=== PATIENT | female | born 2000 | race Hispanic/Latino ===

== ENCOUNTER 2021-02-09 14:15 | Outpatient (CLI) | payer BC ==
[2021-02-10 07:43] LABS: SARS-CoV-2 PCR by NAA Not Detected (NotDetected)
== END 2021-02-09 14:16 | disposition home or self-care (01) ==
LOC: CSHLAB 14:15
PROVIDERS: ATTEND Student in an Organized Health Care Education/Training Program
DX: Z20.822 Contact with and (suspected) exposure to COVID-19 (principal)
CPT/HCPCS: U0003; U0005

== ENCOUNTER 2021-02-12 00:20 | Inpatient (IN) | payer BC ==
[2021-02-12 00:53] VITALS: BMI 32.8
[2021-02-12] MEDS ORDERED: Ibuprofen 800 MG TAB PO PRN (01:20)
[2021-02-12] MEDS ORDERED: Ondansetron PF 4 MG/2 ML Vial IVP PRN ×3 (01:20→10:16)
[2021-02-12] MEDS ORDERED: HYDROcodone/Acetaminophen 5/325 mg Tablet PO PRN ×3 (01:20→10:16)
[2021-02-12] MEDS ORDERED: Butorphanol Tartrate 1 MG/ML VIAL SLOW IVP PRN (01:20)
[2021-02-12] MEDS ORDERED: hydrALAZINE 20 MG/ML VIAL SLOW IVP PRN ×2 (01:20→10:16)
[2021-02-12] MEDS ORDERED: Lidocaine 1% (PF) 30 ML VIAL SC PRN (01:20)
[2021-02-12] MEDS ORDERED: Lactated Ringer's 1,000 ML IV SCH ×2 (01:30)
[2021-02-12 01:56] LABS: Hemoglobin 11.7 g/dL (12.0-15.5); Mean Corpuscular HGB CONC 33.1 g/dL (32.0-36.0); Mean Corpuscular Hemoglobin 28.3 pg (27.0-33.0); Mean Corpuscular Volume 85.5 fl (81.6-98.3); Mean Platelet Volume 11.1 fl (7.4-10.4); Platelet Count 265 10x3/uL (150-450); RBC Distribution Width 13.4 % (11.5-14.5); Red Blood Cell (RBC) Count 4.13 10x6/uL (3.90-5.03)
[2021-02-12] MEDS ORDERED: Fentanyl 2 mcg/Bup 0.1% Cadd 100 ML ONE (02:17)
[2021-02-12 02:30] LABS: Syphilis Antibody Nonreactive (Nonreactive); Syphilis Antibody Index 0.04 S/CO (<1.00 Non-Reactive)
[2021-02-12 02:31] LABS: Hep B Surf Ag Non-Reactive S/CO (NonReactive)
[2021-02-12 03:03] LABS: HBSAg Index 0.15 S/CO (0-0.99)
[2021-02-12] MEDS ORDERED: Lactated Ringer's 500 ML IV PRN (03:09)
[2021-02-12] MEDS ORDERED: ePHEDrine Sulfate 50 MG/10 ML VIAL SLOW IVP PRN (03:09)
[2021-02-12] MEDS ORDERED: Acetaminophen 325 MG TAB PO PRN (03:09)
[2021-02-12] MEDS ORDERED: Promethazine HCl 25 MG/ML VIAL IM PRN ×2 (03:09→10:16)
[2021-02-12] MEDS ORDERED: Hydrocerin (Eucerin) Cream 120 gm Jar TOP PRN (03:09)
[2021-02-12] MEDS ORDERED: diphenhydrAMINE 50 MG/ML VIAL IVP PRN (03:09)
[2021-02-12] MEDS ORDERED: Naloxone HCl 0.4 mg/ml Vial IVP PRN ×2 (03:09)
[2021-02-12] MEDS ORDERED: Communication Order-Pharmacy FS SCH (03:15)
[2021-02-12] MEDS ORDERED: Fentanyl 2 mcg/Bupivacaine 0.1% Cassette 100 ML EPIDURAL SCH (03:15)
[2021-02-12] MEDS: NS w/ Oxytocin 30 units 500 ML IV SCH ×2 (08:18→09:18)
[2021-02-12] MEDS ORDERED: diphenhydrAMINE 25 MG CAP PO PRN (10:16)
[2021-02-12] MEDS ORDERED: Benzocaine-Menthol 82.5 ML CAN TOP PRN (10:16)
[2021-02-12] MEDS ORDERED: Preparation H Ointment 28 GM TUBE PR PRN (10:16)
[2021-02-12] MEDS ORDERED: Milk Of Magnesia 30 ML UDCUP PO PRN (10:16)
[2021-02-12] MEDS ORDERED: Bisacodyl 10 MG SUPP PR PRN (10:16)
[2021-02-12] MEDS ORDERED: Lanolin Ointment 7 GM TUBE TOP PRN (10:16)
[2021-02-12] MEDS: Ibuprofen 800 MG TAB PO SCH ×2 (12:57→21:53)
[2021-02-12] MEDS: Ferrous Sulfate 325 MG TAB PO SCH (18:17)
[2021-02-12] MEDS: Docusate Calcium (SURFAK) 240 MG CAP PO SCH (21:54)
[2021-02-13] MEDS: Ibuprofen 800 MG TAB PO SCH ×3 (05:38→21:37)
[2021-02-13] MEDS: Ferrous Sulfate 325 MG TAB PO SCH ×2 (08:41→17:12)
[2021-02-13] MEDS: Prenatal Vitamin 1 TAB PO SCH (10:06)
[2021-02-13] MEDS: Docusate Calcium (SURFAK) 240 MG CAP PO SCH ×2 (10:06→21:37)
[2021-02-13] MEDS ORDERED: Boostrix 0.5 ML (Tdap) VIAL IM ONE (10:16)
[2021-02-14] MEDS: Ibuprofen 800 MG TAB PO SCH (05:39)
[2021-02-14] MEDS: Ferrous Sulfate 325 MG TAB PO SCH (08:14)
[2021-02-14] MEDS: Docusate Calcium (SURFAK) 240 MG CAP PO SCH (08:15)
[2021-02-14] MEDS: Prenatal Vitamin 1 TAB PO SCH (08:15)
[2021-02-14 08:19] VITALS: BP 100/60; TEMP 98
== END 2021-02-14 14:10 | disposition home or self-care (01) | DRG 807 ==
LOC: CSHLD/OP 00:20 → CSHLD 01:13 → CSHPED 13:20
PROVIDERS: ADMIT Student in an Organized Health Care Education/Training Program; ATTEND Student in an Organized Health Care Education/Training Program
PROC: 10E0XZZ Delivery of Products of Conception, External Approach (ICD-10-PCS; principal; 2021-02-12)
PROC: 0KQM0ZZ Repair Perineum Muscle, Open Approach (ICD-10-PCS; 2021-02-12)
DX: O48.0 Post-term pregnancy (principal); Z37.0 Single live birth; O70.1 Second degree perineal laceration during delivery; Z20.822 Contact with and (suspected) exposure to COVID-19; Z3A.40 40 weeks gestation of pregnancy
CPT/HCPCS: 36415; 51702; 85027; 85461; 86780; 86850; 86870; 86900; 86901; 87340; 90384; 96372; 99285; J2590; J7120; U0003; U0005